=== PATIENT | female | born 1955 | race Caucasian/White ===

== ENCOUNTER 2020-02-21 15:17 | Emergency (ER) | payer OTHER ==
[~2020-02-21] VITALS: Ht 162.6 cm; Wt 52.2 kg
[~2020-02-21 15:17] MED LIST: NORFLEX100 MG PO; SKELAXIN800 MG PO; SYNTHROID50 MCG PO; TORADOL10 MG PO
[2020-02-21] MEDS ORDERED: METFORMIN HCL500 M3 PO (15:59)
[2020-02-21] MEDS ORDERED: TRAZODONE HCL150 MG PO (15:59)
== END 2020-02-21 21:18 | disposition home or self-care (01) ==
LOC: ER 15:17
DX: T85.898A Other specified complication of other internal prosthetic devices, implants and grafts, initial encounter (principal); K59.09 Other constipation